=== PATIENT | female | born 1990 | race Hispanic/Latino ===

== ENCOUNTER 2021-01-27 07:53 | Day surgery (SDC) | payer OTHER ==
[2021-01-27] MEDS ORDERED: Ringers Lactate 1,000 ML IV ONE ×4 (08:18→16:22)
[2021-01-27] MEDS ORDERED: SCOPOLAMINE HYDROBROMIDE PATCH TD ONE (08:18)
[2021-01-27] MEDS ORDERED: CEFAZOLIN/SWI 1gm 1 GM/10 ML SYR ONE (08:19)
[2021-01-27] MEDS ORDERED: NS 0.9% VIAL 40 ML ONE (08:23)
[2021-01-27] MEDS ORDERED: GENTAMICIN SULF 80 MG/2ML INJ ONE (08:24)
[2021-01-27] MEDS ORDERED: CEFAZOLIN SODIUM 1 GM/VIAL ONE ×3 (08:24→13:24)
[2021-01-27] MEDS ORDERED: BACITRACIN 50000 UNIT VIAL ONE (08:24)
[2021-01-27] MEDS ORDERED: Mastisol Adhesive Liq ONE (08:24)
[2021-01-27] MEDS ORDERED: LIDOCAINE 1% W/EPI 1:100,000 MDV 20 ML VIAL ONE (08:24)
[2021-01-27 08:36] LABS: Specific Gravity 1.025 (1.005-1.030)
[2021-01-27] MEDS ORDERED: EPINEPHRINE/PF 1 MG/ML AMP ONE ×2 (08:43→15:11)
[2021-01-27] MEDS ORDERED: NA CHLORIDE 0.9% 2,000 ML ONE (08:43)
[2021-01-27] MEDS ORDERED: MIDAZOLAM HCL 2 MG/2 ML INJ ONE (08:59)
[2021-01-27] MEDS ORDERED: propofoL 200 MG/20 ML VIAL IV ONE (08:59)
[2021-01-27] MEDS ORDERED: LIDOCAINE 2% MPF 5 ML VIAL ONE (09:00)
[2021-01-27] MEDS ORDERED: FENTANYL CITR 250 MCG/5 ML ONE (09:00)
[2021-01-27] MEDS ORDERED: VECURONIUM 10 MG/VIAL IV ONE ×2 (09:00→13:16)
[2021-01-27] MEDS ORDERED: NS 0.9% VIAL 10 ML ONE ×3 (09:00→13:08)
[2021-01-27] MEDS ORDERED: ROCURONIUM 50 MG/5 ML VIAL IV ONE (09:00)
[2021-01-27] MEDS ORDERED: LANO/MINERAL OIL/PETRO 3.5 GM ONE (10:15)
[2021-01-27] MEDS ORDERED: HYDROMORPHONE HCL 1 MG/ML INJ ONE (10:51)
[2021-01-27] MEDS ORDERED: NS 0.9% VIAL 20 ML ONE (13:24)
[2021-01-27] MEDS ORDERED: NEOSTIGMINE 1 MG/ML -5 ML ONE (15:39)
[2021-01-27] MEDS ORDERED: GLYCOPYRROLATE 0.2 MG/ML SYR ONE (15:40)
[2021-01-27] MEDS ORDERED: FENTANYL CITR 100 MCG/2 ML ONE (15:57)
[2021-01-27] MEDS ORDERED: PROMETHAZINE INJ 25 MG/ML AMP ONE (16:35)
[2021-01-27] MEDS ORDERED: ONDANSETRON 4 MG/2 ML VIAL ONE (16:35)
[2021-01-27] MEDS: ONDANSETRON 4 MG/2 ML VIAL ONE ×2 (16:45→17:00)
[2021-01-27] MEDS ORDERED: CODEINE 30MG/APAP 300MG TAB ONE (17:02)
[2021-01-27] MEDS: MEPERIDINE HCL 25 MG/ML SYR ONE ×2 (17:10→17:20)
[2021-01-27 17:39] VITALS: TEMP 97.6; O2SAT 100
[2021-01-27 18:15] VITALS: BP 125/78
--- NOTE | 2021-01-30 07:45 | OP ---
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 Procedure Performed: Breast reduction for 360 right, 480 left, liposuction of abdomen and thighs ___ out. Anesthesia: General. Operative Note: After satisfactory induction of general anesthesia, the chest was prepped with DuraP rep and dry sterile drapes applied in the usual manner. A 5 cm template was used to outline the righ t and left areolas and transverse and curvilinear incisions were made. Intervening skin was de-epith elialized with a dermabrader, and then thinned to 1.6 cm. Flap was elevated towards the s ternum, clavicle, anterior axillary line. Then inferior incision was made and then the deepitheliali zed tissue was formed with cone after excess lateral breast tissue breast tissue was remov ed with scalpel and electrocautery. Conization was performed with 2-0 PDS suture. After this was do ne, straps were elevated at 12 o'clock, 1:30 and 3 o'clock position from the base of the cone and the straps were woven in and out of the pectoralis muscle back to base of cone, tied themselves with 2-0 PDS suture. This was done for 12 o'clock, 1:30 strap. The 3 o'clock strap was sewn over the sternu m at 3 o'clock position with 2-0 Ethibond. Mirror-image procedure was done on the opposite side. Th e patient was then returned to supine. . Dog was marked bilaterally. Then the patient millard d the wound irrigated with antibiotic solution. 10 RAFA was brought out of the axilla and the wound wa s closed with 3-0 Vicryl subcutaneous, 3-0 PDS running subcuticular, tied from medial to lateral, lat eral to medial, tied in the vertical meridian of breast on both sides. The patient was sat up. Site for new nipple-areolar complex was marked out. Tissue was cored out with a 5 cm template and delive red and sewn with interrupted 4-0 PDS followed by 4-0 PDS running subcuticular. Our attention was tu rned to the abdomen and thighs. New clipping was used and the patient re-prepped with DuraPrep, dry sterile drapes applied in the usual manner. Incision was made in the umbilical anterior iliac spine region and medial thigh. Infusion cannula was used to infuse. 5 mm in diameter, right fl ank 500 in and left flank 5 in, upper abdomen 1000, right thigh 350 in, left thigh 350 in, right lowe r abdomen 150 in. Amount removed, right flank 450, left flank 450, upper abdomen 500, right thigh 20 0, left thigh 200, right lower abdomen 300, left lower abdomen 300. Total amount infused was __ Steri-Strips placed over the wound after closing with 4-0 PDS suture. applied and the breast was covered with tinc of benzoin, Steri-Strips, followed by Esmarch, fluffs, and Maury wrap. Th e patient tolerated procedure well and returned to Recovery. HUMBERTO/MONROE Voice ID: [id number] Report ID: [id number]
== END 2021-01-27 18:10 | disposition home or self-care (01) ==
LOC: OR 07:53
PROVIDERS: ATTEND Specialist
PROC: 0J0M3ZZ Alteration of Left Upper Leg Subcutaneous Tissue and Fascia, Percutaneous Approach (ICD-10-PCS; 2021-01-27)
PROC: 0J0L3ZZ Alteration of Right Upper Leg Subcutaneous Tissue and Fascia, Percutaneous Approach (ICD-10-PCS; 2021-01-27)
PROC: 0HSV0ZZ Reposition Bilateral Breast, Open Approach (ICD-10-PCS; principal; 2021-01-27 09:00)
PROC: 0J083ZZ Alteration of Abdomen Subcutaneous Tissue and Fascia, Percutaneous Approach (ICD-10-PCS; 2021-01-27 09:00)
DX: N64.81 Ptosis of breast (principal); E65 Localized adiposity
CPT/HCPCS: 81025; 88305; 19316; 15877; 15879; J2704; J0171 ×2; J2550; J1580; J2250; J3010 ×2; J2175; J1170; J2710; J0690 ×4; J7120 ×4; J7030; J2405; 88304